=== PATIENT | female | born 2005 | race Two or more races ===

== ENCOUNTER 2024-11-24 12:38 | Emergency (ER) | payer MEDICAID, SELFPAY ==
[2024-11-24 13:16] VITALS: BP 121/76; PULSE 95; RESP 20; TEMP 37.1; O2SAT 97
--- NOTE | 2024-11-24 13:32 | EDNOTE_ITS ---
ED OB Contraction Preg RMI/HPI General Chief complaint: Vaginal Bleeding Stated complaint: VAG BLEEDING, LOWER ABD CRAMPS, CHILLS Time Seen by Provider: 11/24/24 12:55 Arrival date/time: 11/24/24 12:38 RME / HPI RME / HPI Narrative: DR. SNYDER MAIN ED EVALUATION: 18 year old female with no past medical history, 1, presents to the Emergency Department accompanied by her mother with complaints of vaginal spotting onset 2 days and diffuse lower abdominal cramping since this morning. Patient is 8 weeks , 1. No other symptoms at this time. Related Data Previous Rx's ?Medication ?Instructions ?Recorded vit no.95-ferrous 1 tab PO QDAY #30 tabs 10/28 05/23 fumarate 28 mg-folic acid 800 mcg tablet ( Formula) Allergies Allergy/AdvReac Type Severity Reaction Status Date / Time No Known Allergies Allergy Verified 07/26/21 20:53 Review of Systems Review of Systems Systems Reviewed: All systems reviewed, normal except as documented Past Medical History Past Medical History CARDIAC: Negative Congestive Heart Failure RESPIRATORY: Negative Chronic Obstructive Pulmonary Disease (COPD) GASTROINTESTINAL: Positive Gastrointestinal Disorders GENITOURINARY: Positive Genitourinary Disorders; Negative Renal Disease ENDOCRINE: Negative Diabetes Mellitus Type 1 or Diabetes Mellitus Type 2 Social History SMOKING STATUS: Never smoker SUBSTANCE USE: does not use ALCOHOL: Never ED Exam Narrative Physical exam: GENERAL APPEARANCE: alert and oriented x 4, well-developed, well-nourished, no acute distress VITALS: All vitals were reviewed and the pulse ox is 97% on room air, which is normal according to my interpretation. HEENT: Normocephalic, atraumatic; pupils equal, round, reactive to light; EOMI; mucous membranes pink, moist; oropharynx clear NECK: Supple LUNGS: CTABL; no wheezes, no rales, no rhonchi HEART: Regular rate, regular rhythm; normal S1, S2; no murmurs ABDOMEN: Mild suprapubic tendeness, diffuse no one side more than other; normal BS; no guarding, no rebound; no masses, no organomegaly, no hernia BACK: no CVA tenderness EXTREMITIES: atraumatic; no edema NEUROLOGIC: awake; alert and oriented x4; cranial nerves II-XII grossly intact; no focal sensory or motor deficits PSYCHIATRIC: appropriate mood and affect SKIN: warm, dry, normal color; no rashes Course Quality Measures none Orders Category Date Time Status Specimen to pathology NOW Care 11/24/24 17:18 Completed US OB <= 14 weeks fetus Stat Exams 11/24/24 13:33 Completed US OB transvaginal Stat Exams 11/24/24 16:57 Completed Beta HCG,Quantitative Stat Lab 11/24/24 13:44 Completed Type and Screen Stat Lab 11/24/24 18:19 Completed UA, C/S IF [Urinalysis, C/S if Indicated] Stat Lab 11/24/24 13:37 Completed Reevaluation(s) Reevaluation #1: Patient went to the restroom prior to discharge. Passed a tissue-like mass vaginally. I inspected the discharge. Consistent with a tissue mass. Plan for repeat ultrasound and tissue to pathology. Hold discharge for repeat US results. Time: 16:58 Vital Signs Vital signs: Vital Signs Temperature 98.7 F 11/24/24 13:16 Pulse Rate 95 11/24/24 13:16 Respiratory Rate 20 11/24/24 13:16 Blood Pressure 121/76 11/24/24 13:16 Pulse Oximetry (%) 97 11/24/24 13:16 Oxygen Delivery Method Room Air 11/24/24 13:16 Vaginal Bleeding MDM Narrative MDM Narrative: I, Tiara Gutiérrez am scribing for and in the presence of Dr. Snyder. Patient data External records reviewed:: [facility] previous records (Reviewed last ED visit dated 10/17/22, discharged with the following: Pain following oral surgery) Clinical information provided by:: patient and parent (mother) Social determinants that could affect healthcare access:: none Patient has the following chronic illnesses:: Patient is 8 weeks , 1. Denies any PMHx, surgeries, daily medications, or known allergies. How is presenting disease/condition affected by chronic disease/condition?: no chronic disease Evaluation data The following diagnostics were reviewed and interpreted by me:: lab results and radiology exam(s) Lab and/or radiology exams considered but not ordered:: none Interpretation Summary: Procedure(s): US OB <= 14 weeks fetus Accession Number(s): [id number] cc: Kwame Sidhu MD; NO PRIMARY/FAMILY,PHYSICIAN; Melanie Snyder MD~ Examination: Complete OB ultrasound, less than 14 weeks, transabdominal Date and time of exam: November 24, 2024 1403 hrs. Indications: Vaginal bleeding beginning 4 days ago with pelvic cramping today Technique: Obstetrical ultrasound images less than 14 weeks performed via transabdominal imaging Findings: A normal shaped single intrauterine gestation is present in the uterus. CRL 1.7 cm corresponds to 8 weeks 1 day gestational age Cardiac motion 123 BPM Ultrasonographic survey of visible and placental structures unremarkable. Amniotic fluid volume appears appropriate for this estimated gestational age. Right ovary 3.4 cm arterial flow. Left ovary 3.0 cm arterial flow Impression: Viable intrauterine gestation 8 weeks 1 day No subchorionic hemorrhage. Dictated By: Kwame Sidhu MD Medications / Prescriptions Medications or Prescriptions considered but not ordered:: none Medication administrations:: see above if any Consultations Consultation(s) initiated? (list below): No Diagnosis Vaginal Bleeding Differential Diagnosis: missed , threatened , dysfunctional uterine bleeding, incomplete , ectopic without intrauterine and vaginal bleeding Most likely diagnosis given after review of the tests above:: Vaginal bleeding affecting early Abdominal pain pain during in first trimester Admission Indicated Admission indicated?: not indicated Explain why admission is indicated or not indicated:: No final disposition plan at this time, still pending diagnostic tests. Patient signout to the catalyst manufacturing operator provider. Admission Request Was there a request for admission?: No Disposition Plan Disposition Plan: other (specify) (Patient signout to the catalyst manufacturing operator provider.) Discharge Plan Plan Patient Disposition: HOME (Self Care) Patient condition on transfer: Stable Prescriptions/Referrals Prescriptions/Med Rec: New PNV cmb#95-ferrous fumarate-FA [ Formula] 28 mg iron- 800 mcg tablet 1 tab PO QDAY Qty: 30 0RF Referrals: No Primary/Family,Physician [Primary Care Provider] - In 1 week Problem List Clinical Impression: Vaginal bleeding, Miscarriage Patient/Caregiver Discharge Instructions Education Materials: Loss Grieving, Bleeding During Early , ED Abdominal Pain, Early Additional Instructions: Take vitamins with folic acid daily. Follow-up with your BUSHLER as scheduled on December 11. You will need a repeat quant level to make sure that it goes back to 0. Please avoid anything intravaginally. Return to the emergency department if you are changing your pad more than 3 pads an hour for more than 2 to 3 hours and/or having dizziness. Print Language: Romansh Stand Alone Forms: [employer] Award Info., Patient Portal Info Letter
[2024-11-24 13:46] LABS: Collection Type, Urine Clean Catch
[2024-11-24 14:04] LABS: Bacteria,Urine Rare; Bilirubin,Urine Negative (Negative); Blood,Urine 3+ (Negative); Culture Indicated,Urine Not Indicated; Glucose, Urine Negative (Negative); Ketones,Urine Negative (Negative); Leukocyte Esterase,Urine Negative (Negative); Nitrite,Urine Negative (Negative); PH,Urine 6.5 (5.0-7.0); Protein,Urine 1+ (Neg - Trace); RBC,Urine 789 /hpf (0-3); Specific Gravity,Urine 1.007 (1.001-1.035); Squamous Epithelial Cell,Urine 1 /hpf (0-5); Urobilinogen,Urine Negative mg/dL (0.0-1.0); WBC,Urine 3 /hpf (0-5)
[2024-11-24 14:05] LABS: Clarity,Urine Cloudy (Clear/Hazy); Color,Urine Lt-Red (Lt Yel-Yel)
--- NOTE | 2024-11-24 16:50 | PC.NURSE ---
PATIENT WAS IN THE RESTROOM AND PASSED CLOTS WITH TISSUE. SAMPLE OBTAINED AND SENT FOR PATHOLOGY. ANOTHER US ORDERED AT THIS TIME
--- NOTE | 2024-11-24 16:57 | XR_ITS ---
Examination: OB Transvaginal ultrasound of the pelvis, complete Technique: Transvaginal sonographic images pelvis performed using castaneda scale imaging Exam date and time: November 24, 2024 1711 hours INDICATIONS: Heavy vaginal bleeding and pelvic cramping today. FINDINGS: Uterus 10.9 cm with thickened heterogeneous endometrial stripe 3.0 cm, blood clots in the endometrium No recognizable intrauterine gestation Right ovary 3.0 cm arterial flow Left ovary 2.8 cm arterial flow IMPRESSION: Findings most consistent with retained products of conception, spontaneous in progress No recognizable intrauterine gestation
--- NOTE | 2024-11-24 18:25 | PC.NURSE ---
PT REQUESTING TO EAT. OKAY PER DR HOLT.
[2024-11-24 18:26] VITALS: BP 124/74; PULSE 92; RESP 18; TEMP 37; O2SAT 98
--- NOTE | 2024-11-24 18:30 | EDNOTE_ITS ---
Emergency Room Addendum <Aaliyah Jones MD - Last Filed: 11/24/24 18:48> Addendum Narrative: 18-year-old coming with vaginal bleeding. The patient was initially seen by Dr. Snyder but upon discharge it appears the patient passed clots and <Clarke Devine - Last Filed: 11/24/24 20:30> Addendum Narrative: 182: 18-year-old female presented with vaginal bleeding. Initially evaluated by Dr. Snyder; however, upon discharge, the patient appeared to have passed clots, and likely miscarried. Pelvic Exam: No further clots observed. Cervical os could not be clearly palpa robert. 2024: I have spoken with the patient to review today?s findings and provided detailed information regarding the plan of care. All questions were addressed, and the patient expressed understanding and agreement with the proposed plan. Reassessment at the time of disposition indicates that the patient is in no acute distress. The patient has remained stable throughout the ED visit, with no objective evidence of an acute process requiring urgent intervention or hospitalization. The patient is deemed clinically stable for discharge. Counseling was provided and documented as noted above, including guidance on symptomatic treatment and specific return precautions. RADIOLOGY DATA: I personally reviewed the radiology data and agree with the radiologist's interpretation. Examination: OB Transvaginal ultrasound of the pelvis, complete Exam date and time: November 24, 2024 1711 hours INDICATIONS: Heavy vaginal bleeding and pelvic cramping today. FINDINGS: Uterus 10.9 cm with thickened heterogeneous endometrial stripe 3.0 cm, blood clots in the endometrium No recognizable intrauterine gestation Right ovary 3.0 cm arterial flow Left ovary 2.8 cm arterial flow IMPRESSION: Findings most consistent with retained products of conception, spontaneous in progress No recognizable intrauterine gestation Dictated By: Kwame Sidhu MD Discharge Plan Plan Patient Disposition: HOME (Self Care) Problem List Clinical Impression: Vaginal bleeding, Miscarriage Attestation <Clarke Devine - Last Filed: 11/24/24 20:30> Attestation Scribe Attestation: Mann Solomon am scribing for and in the presence of Dr. Jones. Provider Notation: Although this document has been carefully reviewed, there may still be some phonetic and other typographical errors. These errors are purely grammatical due to imperfections in the software program and should not be construed in any way to compromise the substance of the patient's medical care during this visit.
[2024-11-24 20:40] VITALS: BP 111/71; PULSE 98; RESP 17; TEMP 36.8; O2SAT 99
== END 2024-11-24 20:40 | disposition home or self-care (01) ==
PROVIDERS: Emergency Medicine; Emergency Provider Emergency Medicine
DX: O03.9 Complete or unspecified spontaneous abortion without complication (principal)
CPT/HCPCS: 36415; 76801; 76817; 81001; 84702; 86850; 86900; 86901; 99284